=== PATIENT | female | born 1965 | race Caucasian/White ===

== ENCOUNTER 2017-08-30 11:38 | Inpatient (IN) | payer OTHER, SELFPAY ==
[2017-08-30] VITALS (10 sets, daily range): BP systolic 99–140; BP diastolic 56–83; PULSE 77–113; RESP 15–20; TEMP 36.8–36.9; O2SAT 96–99; BMI 33.8; BMI 34.4; BMI 34.5
--- NOTE | 2017-08-30 12:26 | RAD_ITS ---
STUDY: X-RAY CHEST REASON FOR EXAM: Female, 52 years old. 2 episodes of dizziness and lightheadedness. TECHNIQUE: PA and lateral views of the chest. COMPARISON: None. FINDINGS: EKG electrodes are seen. The lungs are clear and expanded. There is no demonstrated pleural abnormality. Normal size heart. Normal mediastinum and ardha. Normal visualized pulmonary arteries. Normal visualized aortic arch and descending thoracic aorta. There are degenerative changes of the visualized thoracic spine. Normal visualized ribs, clavicles, and shoulders. There is no demonstrated abnormality of the visualized soft tissue structures of the upper abdomen. RAD/Chest PA and Lateral IMPRESSION: No acute abnormality is seen. Electronically Signed: Jeronimo Mcleod MD at 12:54 EDT Tel [phone], Service support ,
--- NOTE | 2017-08-30 12:26 | EKG12_ITS ---
Test Reason : Blood Pressure : / mmHG Vent. Rate : 101 BPM Atrial Rate : 101 BPM P-R Int : 144 ms QRS Dur : 084 ms QT Int : 368 ms P-R-T Axes : 055 018 044 degrees QTc Int : 477 ms Sinus tachycardia Otherwise normal ECG Confirmed by BLANKA MONTELONGO, ZIYAD ([id number]), city editor JAIRO HUNTER ([id number] on 09/01/2017 10:52:08 AM Referred By: DEUCE Confirmed By:ZIYAD MOSCOSO MD
[2017-08-30 12:39] LABS: Absolute Lymphocyte Count 1.83 X10^3/ul (0.83-4.51); Absolute Neutrophil Count 15.2 X10^3/uL (2.0-7.7); Basophil# 0.03 X10^3/uL; Basophil% 0.2 % (0-1); Eosinophil# 0.06 X10^3/uL; Eosinophils% 0.3 % (0-5); Hematocrit 38.9 % (37-47); Hemoglobin 12.7 g/dl (12.0-15.0); Lymphocyte # 1.83 X10^3/ul (4.0); Lymphocyte % 10.3 % (19-41); Mean Corp Hgb Conc 32.6 g/gl (32-36); Mean Corpuscular Hgb 27.2 pg (27.0-32.0); Mean Corpuscular Volume 83.3 fL (81-99); Mean Platelet Vol. 9.5 fl (6.2-12.0); Monocyte# 0.69 X10^3/uL; Monocyte% 3.9 % (0-10); Neutrophil # 15.17 X10^3/uL (2.7-7.7); Neutrophil % 85.1 % (47-70); Platelet Count 340 K/mm3 (150-450); RBC Distribution Width CV 13.5 % (11.6-14.6); RBC Distribution Width SD 40.5 fl (35.1-43.9); Red Blood Count 4.67 M/mm3 (4.2-5.4); White Blood Count 17.8 K/mm3 (4.4-11.0)
[2017-08-30 12:45] LABS: POSITIVE COUNT NO; POSITIVE DIFFERENTIAL NO; POSITIVE MORPHOLOGY NO
[2017-08-30 12:51] LABS: Anion Gap 9 (5-15); BUN 14 mg/dL (7-18); BUN/Creat Ratio 19.9 RATIO (10-20); Calcium,Total 8.6 mg/dL (8.5-10.1); Chloride 100 mmol/L (98-107); EST Glomerular Filtration Rate 94 mL/min (>60); Est Glom Filt Rate - Afr Amer 113 mL/min (>60); Estimated Creatinine Clearance 79.54 ml/min; Glucose 231 mg/dL (74-106); Potassium 3.9 mmol/L (3.5-5.1); Sodium Level 134 mmol/L (136-145)
--- NOTE | 2017-08-30 12:51 | PCA ---
old ekg gotten
[2017-08-30 13:09] LABS: Bacteria 0 SEEN /hpf (None Seen); Mucous, Urine 0 SEEN /hpf (<or=2+); Red Blood Cells-Urine 0 SEEN /hpf (0-5)
[2017-08-30 13:12] LABS: Color, Urine Yellow (Yellow); Glucose, Dipstick 1000 mg/dl (Normal); Ketone-Dipstick 15 mg/dl (Negative); Leukocyte Esterase-Dipstick 500 /ul (Negative); Nitrite-Dipstick Negative (Negative); Occult Blood-Urine Negative /ul (Negative); Protein-Dipstick Negative (Negative); Urine Bilirubin Dipstick Negative (Negative); Urine Clarity Clear (Clear); Urine Urobilinogen Normal (Normal)
[2017-08-30 13:21] LABS: Squamous Epithelial Cells - UA 0-5 SEEN /hpf (5-10); White Blood Cells 0-5 SEEN /hpf (0-5)
[2017-08-30] MEDS: 0.9% Normal Saline 1,000 ML 999 ML IV ×2 (13:55→20:47)
[2017-08-30 14:39] LABS: Lactic Acid 2.9 mmol/L (0.4-2.0)
--- NOTE | 2017-08-30 14:51 | ED.DCSUM_ITS ---
- ER Visit Summary Date of Service: 08/30/17 Chief Complaint: I felt weird. History of Present Illness: The patient is a 52 F who presents with lightheadedness palpitations and near syncope. She states that she generally did not feel well and she began to feel dizzy as if she may lose consciousness. She states her heart was pounding. This lasted a few minutes and then resolved. She then had a second episode which did not last quite as long as the first. She has no other focal symptoms. She denies fevers chest pain shortness of breath nausea vomiting diarrhea. No history of dysrhythmia. No history of prior similar symptoms. Physical Examination: Afebrile heart rate 103 vitals otherwise normal Moist mucous membranes Heart regular rhythm tachycardia Lungs are clear Abdomen soft Alert Test Results: EKG shows sinus rhythm at a rate of 101. Chest x-ray shows no acute abnormalities. Laboratory studies notable for white blood cell count 17.8. Urinalysis shows 500 leukocyte esterase but no nitrites 0-5 WBCs 0 bacteria. Lactic acid 2.9. Troponin negative. Blood and urine cultures sent. Emergency Department Course and Treatment: Patient was treated with IV fluids. Although she reports no urinary symptoms she had frequent urination and needed to urinate multiple times while here. Urinalysis shows leukocyte esterase but no WBCs or bacteria. This was sent for culture. Additionally the patient has a significant leukocytosis and lactic acidosis. This is likely related to UTI. She was treated with IV Rocephin and will be admitted. Treatment Plan: [] Disposition: Admit Impression: Leukocytosis Lactic acidosis Possible UTI This note was generated with [employer] dictation software. It may contain incorrect words, spelling, and punctuation that were not noted in review of the chart prior to signing ED Disposition - Plan for ED Patient: Chief Complaint: Syncope Referrals: Cristy Simpson NP-C [Primary Care Provider] -
--- NOTE | 2017-08-30 14:57 | PCM.HP.STD ---
Problem List (1) UTI (urinary tract infection) Status: Acute Qualifiers: Urinary tract infection type: site unspecified Hematuria presence: without hematuria Qualified Code(s): N39.0 - Urinary tract infection, site not specified (2) Near syncope Status: Acute (3) Diabetes mellitus, type II Status: Chronic Qualifiers: Diabetes mellitus superintendent container terminal insulin use: without fci use Diabetes mellitus complication status: with unspecified complications Qualified Code(s): E11.8 - Type 2 diabetes mellitus with unspecified complications (4) Obesity (BMI 30.0-34.9) Status: Chronic (5) Iron deficiency anemia Status: Chronic Qualifiers: Iron deficiency anemia type: unspecified iron deficiency Qualified Code(s): D50.9 - Iron deficiency anemia, unspecified (6) Uterine fibroid Status: Chronic Qualifiers: Uterine leiomyoma location: unspecified location Qualified Code(s): D25.9 - Leiomyoma of uterus, unspecified History of Present Illness Date of Admission: 08/30/17 Chief Complaint: Increased urinary frequency, recent UTI tx x 2, near syncope The patient is a 52 y/o F w/ PMHx: Obesity, Diabetes mellitus type II, Fe Deficiency Anemia who presents to the [facility] ED on 08/30/17 with history of recent UTI treatment x 2, different abx therapy each time, denies urine culture being obtained with either remarkable noted UA over the last month with low back discomfort and dysuria each time with onset again over the last 2 days of lower back discomfort, fatigue, nausea w/ anorexia, urinary frequency, urgency in addition to onset on day of ED presentation w/ flushed, hot sensation with heart pounding w/ near syncopal sensation while seated and at rest resolving after ~ 2 minutes but recurring although again quickly resolving. While in the ED patient was noted to urinate several times. Work-up in the ED included T 98.2, HR 96, BP 123/70, RR 18, 99% on RA, CBC with WBC 17.8, hemoglobin 12.7, platelet 340 with left shift, BMP with sodium 134, glucose 231, lactic acid 2.9, troponin less than 0.015, EKG w/ sinus rhythm, urinalysis not severe appearing however given remarkable symptoms, leukocytosis and recent antibiotic therapy ?2 for urinary tract infection outpatient suspected possible UTI as etiology and in the emergency room patient was administered IV Rocephin, normal saline. Past Medical History Past Medical History (Chronic Problems): Chronic Problems Diabetes mellitus, type II (Chronic) Obesity (BMI 30.0-34.9) (Chronic) Iron deficiency anemia (Chronic) Uterine fibroid (Chronic) Allergies No Known Allergies Allergy (Verified 08/30/17 11:39) Home Medications: Ambulatory Orders Medication Instructions Recorded Biotin 5 mg PO DAILY 08/30/17 Cinnamon Bark [Cinnamon] 500 mg PO DAILY 08/30/17 Ferrous Sulfate 325 mg PO DAILY 08/30/17 Glimepiride [Amaryl] 2 mg PO DAILY 08/30/17 Lisinopril [Zestril] 2.5 mg PO DAILY 08/30/17 Metformin HCl 1,000 mg PO BID 08/30/17 Surgical History: - - x 3, T+A. 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 Paternal History Items: Unknown Review of Systems Constitutional: Reports: Anorexia, Malaise, Weakness, Fatigue. Denies: Chills, Fever, Weight Change HEENT: Denies: Head Aches, Sinus Congestion, Sinus Drainage Cardiovascular: Denies: Chest Pain, Palpitations Respiratory: Denies: Cough, Shortness of breath at rest, Sputum production Gastrointestinal: Reports: Nausea. Denies: Abdominal Pain, Vomiting Genitourinary: Reports: Dysuria, Frequency, Retention, Urgency Musculoskeletal: Reports: Back Pain. Denies: Joint Pain, Joint Tenderness Skin: Denies: Rash, Wounds Neurological: Denies: Numbness, Tingling, Focal weakness Psychiatric: Denies: Anxiety, Depression, Homicidal Ideations, Suicidal Ideations Hematologic/ Lymphatic: Reports: Anemia. Denies: Easy Bruising, Easy Bleeding VTE Information - Inpt Only VTE Present on Admission: No VTE Mechan Device Prophylaxis: SCD's VTE Pharm Prophylaxis ordered?: Yes Patient Problems: Active and Suspected Problems UTI (urinary tract infection) (Acute) Near syncope (Acute) Subjective: Seated upright in the ED bed, notes feeling improved since initial presentation. Objective: Physical Examination: General: awake, alert, oriented x 3 and cooperative, seated upright in the ED bed in no apparent distress. Skin: normal color, turgor, no icterus, cyanosis. HEENT: AT/NC, EOMI, PERRLA, dry MM, no carotid bruits or JVD noted. Lungs: CTA bilaterally, moderate effort, mild decrease BL bases, no rales, ronchi or wheezing. Heart: Mildly tachycardic with regular rhythm; no gallop, rub audible. Abdomen: soft, mild suprapubic tenderness to palpation otherwise no market tenderness, ND, normal BS, no HSM. Extremities: no cyanosis, clubbing, or edema. Neurological: patient awake, alert, oriented x 3; cognitive function intact; pupils equally reactive to light and accomodation; cranial nerves II-XII grossly normal, moving all 4 extremities, no focal deficits, strength mildly moderately globally decreased secondary to acute presentation. Psychiatric: affect appears normal, no acute evidence of depressive or anxiety feelings. - Physical Exam Vital Signs Temp Pulse Resp BP Pulse Ox 98.2 F 90 15 140/79 H 97 08/30/17 11:40 08/30/17 14:12 08/30/17 14:12 08/30/17 14:12 08/30/17 14:12 Oxygen Delivery Method Room Air Weight: 191 lb Body Mass Index (BMI) 33.8 Laboratory Tests Past 24 Hrs 08/30/17 08/30/17 08/30/17 12:09 12:09 13:03 WBC 17.8 H RBC 4.67 Hgb 12.7 Hct 38.9 MCV 83.3 MCH 27.2 MCHC 32.6 RDW 13.5 RDW Differential 40.5 Plt Count 340 MPV 9.5 Immature Gran % (Auto) 0.200 Neut % (Auto) 85.1 H Lymph % (Auto) 10.3 L [place] % (Auto) 3.9 Eos % (Auto) 0.3 Baso % (Auto) 0.2 Absolute Neuts (auto) 15.2 H Absolute Lymphs (auto) 1.83 Total Counted Not Reportable Sodium 134 L Potassium 3.9 Chloride 100 Carbon Dioxide 25.0 Anion Gap 9 BUN 14 Creatinine 0.70 Estim Creat Clear Calc 79.54 Est GFR (MDRD) Af Amer 113 Est GFR (MDRD) Non-Af 94 BUN/Creatinine Ratio 19.9 Glucose 231 H Lactic Acid Calcium 8.6 Troponin I < 0.015 Urine Color Yellow Urine Clarity Clear Urine pH 6.0 Ur Specific [place] 1.010 Urine Protein Negative Urine Glucose (UA) 1000 H Urine Ketones 15 H Urine Occult Blood Negative Urine Nitrite Negative Urine Bilirubin Negative Urine Urobilinogen Normal Ur Leukocyte Esterase 500 H Urine RBC 0 SEEN Urine WBC 0-5 SEEN Ur Squamous Epith Cells 0-5 SEEN Urine Bacteria 0 SEEN Urine Mucus 0 SEEN 08/30/17 14:00 WBC RBC Hgb Hct MCV MCH MCHC RDW RDW Differential Plt Count MPV Immature Gran % (Auto) Neut % (Auto) Lymph % (Auto) [place] % (Auto) Eos % (Auto) Baso % (Auto) Absolute Neuts (auto) Absolute Lymphs (auto) Total Counted Sodium Potassium Chloride Carbon Dioxide Anion Gap BUN Creatinine Estim Creat Clear Calc Est GFR (MDRD) Af Amer Est GFR (MDRD) Non-Af BUN/Creatinine Ratio Glucose Lactic Acid 2.9 H Calcium Troponin I Urine Color Urine Clarity Urine pH Ur Specific [place] Urine Protein Urine Glucose (UA) Urine Ketones Urine Occult Blood Urine Nitrite Urine Bilirubin Urine Urobilinogen Ur Leukocyte Esterase Urine RBC Urine WBC Ur Squamous Epith Cells Urine Bacteria Urine Mucus Assessment/Plan Active and Suspected Problems UTI (urinary tract infection) (Acute) Near syncope (Acute) The patient is a 52 y/o F w/ PMHx: Obesity, Diabetes mellitus type II, Fe Deficiency Anemia who presents to the [facility] ED on 08/30/17 with history of recent UTI treatment x 2, different abx therapy each time, denies urine culture being obtained with either remarkable noted UA over the last month with low back discomfort and dysuria each time with onset again over the last 2 days of lower back discomfort, fatigue, nausea w/ anorexia, urinary frequency, urgency in addition to onset on day of ED presentation w/ flushed, hot sensation with heart pounding w/ near syncopal sensation while seated and at rest resolving after ~ 2 minutes but recurring although again quickly resolving. (1) Near Syncopal Event: Unclear etiololgy, felt likely secondary to #2; however, UA not severe appearing. EKG in ED w/ sinus rhythm without evidence of acute ischemia, CXR w/ no acute cardiopulmonary findings, initial trop normal. Will admit to PCU, place on a monitored bed to assure no acute myocardial infarction with serial cardiac enzymes and EKGs. Will maintain on fall precautions, orthostatics negative in the ED, continue IVFs, continue treatment of #2, obtain ECHO. (2) Acute Urinary Tract Infection, Failed Recent Outpatient treatment x 2: UA upon ED evaluation not severely remarkable but sxs and recent abx therapy x 2, pending UCx, admission CBC w/ WBC 17.8 with L shift, continue IVFs, monitor I/Os, continue IV Rocephin w/ transition as able pending sensitivities and speciation. Bld cx x 2 obtained in the ED. (3) Diabetes mellitus type II: Hold oral home regimen, ADA diet, accu checks w/ ISS. (4) Iron deficiency anemia: Admission hemoglobin 12.7, patient notes over the last several months was transitioned to only single daily iron and since then has felt mildly increased fatigue and weakness. Iron panel, ferritin pending. (5) Obesity: Weight loss and lifestyle changes encouraged, nutrition consulted. (6) DVT Prophylaxis: SCDs, lovenox. Code Visit Inpatient E&M: 65800 Init Hosp L3
[2017-08-30] MEDS: Ceftriaxone 1 GM/50 ML BAG IV (15:19)
--- NOTE | 2017-08-30 17:55 | ECHOD_ITS ---
Reason For Study: Arrhythmia Procedure This was a 2D Doppler, Color Flow transthoracic echocardiogram. The exam was of adequate technical quality. Exam performed portable in patient room. Left Ventricle Normal LV size. Left ventricular systolic function is normal. The estimated ejection fraction is 65 %. No evidence for diastolic dysfunction. No regional wall motion abnormalities noted. Right Ventricle Normal RV size. Normal systolic function. Atria Normal left atrium. Normal right atrium. No doppler evidence for ASD. Mitral Valve There is no mitral annular calcification. Normal mitral valve. Trivial mitral valve insufficiency. Tricuspid Valve Normal tricuspid valve. Mild tricuspid valve insufficiency. Right ventricular systolic pressure estimated to be 30 mmHg. Aortic Valve Trisinus/trileaflet aortic valve. Normal aortic valve. Pulmonic Valve The pulmonic valve is not well visualized. Great Vessels Normal sized aortic root. Pericardium/Pleural No pericardial effusion. MMode/2D Measurements & Calculations LVIDd: 3.8 cm IVSd: 1.3 cm Ao root diam: 3.3 cm LVIDs: 1.7 cm LVPWd: 0.90 cm LA dimension: 3.3 cm FS: 54.1 % LAV(MOD-bp): 32.7 ml LA A4 area: 17.3 cm2 LAV(MOD-bp) Indexed: 17.1 ml/m2 LAV(MOD-sp2): 21.8 ml LAV(MOD-sp4): 45.3 ml Time Measurements MV dec time: 0.20 sec Doppler Measurements & Calculations MV E max reza: 118.3 cm/sec Lat Peak E' Reza: 15.5 cm/sec Med Peak E' Reza: 11.7 cm/sec MV A max reza: 73.6 cm/sec E/E' lat: 7.6 E/E' med: 10.1 MV E/A: 1.6 MV V2 max: 126.2 cm/sec MV P1/2t max reza: 126.2 cm/sec Ao V2 max: 157.0 cm/sec MV max P.4 mmHg MV P1/2t: 66.1 msec Ao max P.9 mmHg MV V2 mean: 55.6 cm/sec MV dec slope: 559.0 cm/sec2 Ao V2 mean: 105.6 cm/sec MV mean P.6 mmHg MVA(P1/2t): 3.3 cm2 Ao mean P.9 mmHg MV V2 VTI: 30.5 cm Ao V2 VTI: 31.9 cm LV V1 max: 120.9 cm/sec PA V2 max: 97.3 cm/sec TR max reza: 257.6 cm/sec LV V1 max P.8 mmHg TR max P.5 mmHg LV V1 mean P.9 mmHg LV V1 mean: 79.7 cm/sec LV V1 VTI: 27.4 cm Interpretation Summary Left ventricular systolic function is normal. The estimated ejection fraction is 65 %. Trivial mitral valve insufficiency. Mild tricuspid valve insufficiency. Right ventricular systolic pressure estimated to be 30 mmHg. No evidence for diastolic dysfunction. Ordering Physician: Ronel La Performed By: Everett Waller RCS
[2017-08-30 18:00] LABS: Bedside Glucose 147 mg/dL (70-110)
[2017-08-30 18:06] LABS: Reflex Lactate? Y
[2017-08-30] MEDS: 0.9% Normal Saline 1,000 ML 125 ML IV (18:08)
[2017-08-30 18:22] LABS: Ferritin 8 ng/mL (8-252); Iron 39 ug/dL (50-170); Iron Binding Capacity,Total 370 ug/dL (250-450); PERCENT IRON SATURATION 10.5 % (15.0-55.0); Thyroid Stim Hormone (TSH) 0.94 uIU/mL (0.358-3.74)
[2017-08-30 18:25] LABS: Magnesium 1.8 mg/dL (1.6-2.6)
[2017-08-30 19:19] LABS: Lactic Acid 2.1 mmol/L (0.4-2.0)
[2017-08-30] MEDS: Famotidine 20 MG Tablet PO (21:37)
--- NOTE | 2017-08-30 22:22 | NURSING ---
Pt. put her wedding ring in purse at this time. She felt her fingers were swelling. No swelling noted by this nurse. IV site has no edema or signs of infiltration. Will monitor.
[2017-08-30 23:06] LABS: Bedside Glucose 171 mg/dL (70-110)
[2017-08-31] VITALS (12 sets, daily range): BP systolic 109–141; BP diastolic 54–90; PULSE 63–89; RESP 16–20; TEMP 36.6–37; O2SAT 96–998
[2017-08-31] MEDS: 0.9% Normal Saline 1,000 ML 125 ML IV ×2 (05:04→13:50)
[2017-08-31 05:32] LABS: Absolute Lymphocyte Count 3.91 X10^3/ul (0.83-4.51); Absolute Neutrophil Count 5.9 X10^3/uL (2.0-7.7); Basophil# 0.04 X10^3/uL; Basophil% 0.4 % (0-1); Eosinophil# 0.22 X10^3/uL; Hematocrit 35.4 % (37-47); Hemoglobin 11.3 g/dl (12.0-15.0); Lymphocyte # 3.91 X10^3/ul (4.0); Lymphocyte % 36.1 % (19-41); Mean Corp Hgb Conc 31.9 g/gl (32-36); Mean Corpuscular Hgb 27.2 pg (27.0-32.0); Mean Corpuscular Volume 85.1 fL (81-99); Mean Platelet Vol. 9.4 fl (6.2-12.0); Monocyte# 0.76 X10^3/uL; Neutrophil # 5.88 X10^3/uL (2.7-7.7); Neutrophil % 54.2 % (47-70); Platelet Count 307 K/mm3 (150-450); RBC Distribution Width CV 13.5 % (11.6-14.6); RBC Distribution Width SD 41.5 fl (35.1-43.9); Red Blood Count 4.16 M/mm3 (4.2-5.4); White Blood Count 10.8 K/mm3 (4.4-11.0)
[2017-08-31 05:40] LABS: POSITIVE COUNT NO; POSITIVE DIFFERENTIAL NO; POSITIVE MORPHOLOGY NO
[2017-08-31 05:51] LABS: AST(SGOT) 8 U/L (15-37); Alanine Aminotransfer ALT/SGPT 15 U/L (13-56); Albumin, Serum 2.9 g/dL (3.2-5.0); Alkaline Phosphatase 92 U/L (45-117); Anion Gap 7 (5-15); BUN 10 mg/dL (7-18); BUN/Creat Ratio 18.6 RATIO (10-20); Calcium,Total 7.7 mg/dL (8.5-10.1); Chloride 108 mmol/L (98-107); Creatinine, Serum 0.54 mg/dL (0.55-1.02); EST Glomerular Filtration Rate 127 mL/min (>60); Est Glom Filt Rate - Afr Amer 154 mL/min (>60); Glucose 151 mg/dL (74-106); Potassium 3.8 mmol/L (3.5-5.1); Protein, Total 5.9 g/dL (6.4-8.2); Sodium Level 141 mmol/L (136-145)
--- NOTE | 2017-08-31 05:55 | EKG12_ITS ---
Test Reason : DYSRHYTHMIA Blood Pressure : / mmHG Vent. Rate : 062 BPM Atrial Rate : 062 BPM P-R Int : 148 ms QRS Dur : 082 ms QT Int : 426 ms P-R-T Axes : 034 035 026 degrees QTc Int : 432 ms Normal sinus rhythm Normal ECG Confirmed by BLANKA MONTELONGO, ZIYAD ([id number]), web editor JAIRO HUNTER ([id number] on 09/06/2017 2:55:05 PM Referred By: VASQUEZ Confirmed By:ZIYAD MOSCOSO MD
[2017-08-31 07:05] LABS: Bedside Glucose 157 mg/dL (70-110)
[2017-08-31] MEDS: Ferrous Sulfate 325 MG Tablet PO (08:01)
[2017-08-31] MEDS: Famotidine 20 MG Tablet PO ×2 (08:57→21:18)
[2017-08-31] MEDS: Enoxaparin 40 MG/0.4 ML Syringe SC (08:57)
[2017-08-31] MEDS: Lisinopril 2.5 MG Tablet PO (08:57)
--- NOTE | 2017-08-31 11:54 | PN_ITS ---
Patient Problems: Active and Suspected Problems UTI (urinary tract infection) (Acute) Near syncope (Acute) Subjective: Patient seen and examined. Continues to complain of urinary frequency. Denies dysuria. Denies flank pain, abdominal pain. Denies fever, chills. Denies other complaints at this time. - Physical Exam General: Alert, Oriented x3, Cooperative HEENT: Atraumatic, PERRLA, EOMI, Normocephalic Neck: Supple, No JVD, Negative Carotid Bruits Lungs: Clear to auscultation, Normal air movement Cardiovascular: Regular rate, Regular Rhythm, Normal S1, Normal S2, No murmurs Abdomen: Bowel Sounds Present, Soft, Non Tender, Non-Distended Extremities: No clubbing, No cyanosis, No edema, Capillary Refill Less than 3 Seconds Skin: No rashes, No breakdown Musculoskeletal: No Tenderness to Palpation of Joints or Extremities Neurological: Cranial nerves II-XII grossly intact, Neuro grossly intact Psych/Mental Status: Normal Affect, Appropriate Vital Signs Temp Pulse Resp BP Pulse Ox 98.6 F 77 18 130/78 H 97 08/31/17 11:25 08/31/17 11:25 08/31/17 11:25 08/31/17 11:25 08/31/17 11:25 Oxygen Delivery Method Room Air Weight: 88.3 kg Body Mass Index (BMI) 34.4 Intake and Output for Last 24 Hours 08/29/17 08/30/17 08/31/17 23:59 23:59 23:59 Intake Total 1696 / 1696 1196 / 1196 Output Total 175 / 175 300 / 300 Balance 1521 / 1521 896 / 896 Laboratory Tests Past 24 Hrs 08/30/17 08/30/17 08/30/17 18:29 18:29 20:29 WBC RBC Hgb Hct MCV MCH MCHC RDW RDW Differential Plt Count MPV Immature Gran % (Auto) Neut % (Auto) Lymph % (Auto) [place] % (Auto) Eos % (Auto) Baso % (Auto) Absolute Neuts (auto) Absolute Lymphs (auto) Total Counted Sodium Potassium Chloride Carbon Dioxide Anion Gap BUN Creatinine Estim Creat Clear Calc Est GFR (MDRD) Af Amer Est GFR (MDRD) Non-Af BUN/Creatinine Ratio Glucose Lactic Acid 2.1 H Calcium Total Bilirubin AST ALT Alkaline Phosphatase Troponin I < 0.015 < 0.015 Total Protein Albumin Globulin Albumin/Globulin Ratio 08/31/17 08/31/17 08/31/17 05:13 05:13 05:13 WBC 10.8 RBC 4.16 L Hgb 11.3 L Hct 35.4 L MCV 85.1 MCH 27.2 MCHC 31.9 L RDW 13.5 RDW Differential 41.5 Plt Count 307 MPV 9.4 Immature Gran % (Auto) 0.300 Neut % (Auto) 54.2 Lymph % (Auto) 36.1 [place] % (Auto) 7.0 Eos % (Auto) 2.0 Baso % (Auto) 0.4 Absolute Neuts (auto) 5.9 Absolute Lymphs (auto) 3.91 Total Counted Not Reportable Sodium 141 Potassium 3.8 Chloride 108 H Carbon Dioxide 26.0 Anion Gap 7 BUN 10 Creatinine 0.54 L Estim Creat Clear Calc 103.10 Est GFR (MDRD) Af Amer 154 Est GFR (MDRD) Non-Af 127 BUN/Creatinine Ratio 18.6 Glucose 151 H Lactic Acid 1.0 Calcium 7.7 L Total Bilirubin 0.50 AST 8 L ALT 15 Alkaline Phosphatase 92 Troponin I Total Protein 5.9 L Albumin 2.9 L Globulin 3.0 Albumin/Globulin Ratio 1.0 POC Glucose 08/31/17 08/30/17 08/30/17 06:59 21:41 17:56 POC Glucose 157 H 171 H 147 H Medical Necessity - Tobacco Use Smoking Status: Never smoker Assessment/Plan Active and Suspected Problems UTI (urinary tract infection) (Acute) Near syncope (Acute) Patient is a 52-year-old female admitted 08/30/2017 due to increased urinary frequency, recent UTI with failed outpatient treatment ?2, near syncope. She has a past medical history of type 2 diabetes mellitus, obesity, iron deficiency anemia, hypertension. 1. Acute urinary tract infection, failed recent outpatient treatment ?2- complains of continued urinary frequency. Continue IV Rocephin. Urine and blood cultures pending. Bladder scan ordered. Post void residuals have not been significant. 2. Near syncope-troponin negative. Echocardiogram pending. Suspect secondary to #1. Patient denies further dizziness, lightheadedness. Orthostatic vitals negative. 3. Type 2 diabetes mellitus-home metformin regimen on hold. Continue Accu- Cheks before meals at bedtime with sliding scale insulin. Check hemoglobin A1c given recurrent UTI. 4. Iron deficiency anemia-continue home iron supplementation. 5. Hypertension-stable, continue home lisinopril regimen. 6. Obesity-diet and lifestyle modifications encouraged. DVT prophylaxis-Lovenox subcu. This patient was seen by NOÉ Fry under the supervision of Dr. Caraballo.
[2017-08-31 11:55] LABS: Bedside Glucose 199 mg/dL (70-110)
[2017-08-31 12:28] LABS: Hemoglobin A1c 8.7 % (4.2-6.3)
--- NOTE | 2017-08-31 13:24 | CASEMGMT ---
RAMAN HERNANDEZ Face to Face with patient for initial transition planning/care coordination assessment. RAMAN HERNANDEZ introduced self and role at [facility]. Patient lying in bed, alert and oriented, at bedside. Patient willing to participate in assessment and is able to answer all questions appropriately. Care providers, pharmacy, and demographics verified. See link attached. Patient wishes to discharge home, denies needs at this time. Patient states she has no further needs or concerns at this time. RAMAN HERNANDEZ sent referral to [facility]. CM to follow for discharge planning needs that may arise. Disposition Plan: Patient to discharge home with family support and follow-up plans in place.
[2017-08-31] MEDS: Ceftriaxone 1 GM/50 ML BAG IV (13:50)
[2017-08-31 16:36] LABS: Bedside Glucose 192 mg/dL (70-110)
[2017-08-31] MEDS: Acetaminophen 325 MG Tablet 650 MG PO (18:20)
[2017-08-31 21:40] LABS: Bedside Glucose 245 mg/dL (70-110)
[2017-09-01 03:20] VITALS: PULSE 65
[2017-09-01 05:00] VITALS: BP 113/79; PULSE 77; RESP 16; TEMP 36.7; O2SAT 96
[2017-09-01 07:05] LABS: Bedside Glucose 163 mg/dL (70-110)
[2017-09-01 07:21] VITALS: PULSE 60
--- NOTE | 2017-09-01 08:41 | PCM.DC ---
- Discharge Diagnoses Current Active Problems: Current Active and Chronic Problems Diabetes mellitus, type II (Chronic) Obesity (BMI 30.0-34.9) (Chronic) Iron deficiency anemia (Chronic) Uterine fibroid (Chronic) UTI (urinary tract infection) (Acute) Near syncope (Acute) You will use the following diet at home:: Calorie/Carbohydrate Controlled (specify 1200, 1400, etc) Discharge Activity: Return to Normal Activity Call your doctor if you observe: Fever of 101 or Higher, Shortness of breath, Dizziness, Fainting spells, Chest pain, Increased palpitations (irregular heartbeat) Additional Instructions: You voiced interest in switching primary care physicians. We spoke about Dr. Suarez. Her office is located at [address] [place] [address]. Phone number is [phone]. Allergies/Adverse Reactions: Allergies No Known Allergies Allergy (Verified 08/30/17 11:39) Medications to take at Discharge Biotin 5 mg PO MOWEFR 08/30/17 Cinnamon Bark [Cinnamon] 500 mg PO DAILY 08/30/17 Ferrous Sulfate 325 mg PO DAILY 08/30/17 Glimepiride [Amaryl] 2 mg PO DAILY 08/30/17 Lisinopril [Zestril] 2.5 mg PO DAILY 08/30/17 Metformin HCl 1,000 mg PO BID 08/30/17 Cephalexin [Keflex] 500 mg PO Q12 #12 cap 09/01/17 The following prescriptions were given: Cephalexin [Keflex] 500 mg PO Q12 #12 cap Primary Care Physician: Cristy Simpson NP-C [Primary Care Provider] - Please follow up with your Primary Care Physician in: 1 Week Please Follow Up With: Dr. Rae Kellogg - Female Urology When: Call to schedule in October, Proposed Discharge Date: 09/01/17
--- NOTE | 2017-09-01 08:45 | DCINST_ITS ---
- Discharge Diagnoses Current Active Problems: Current Active and Chronic Problems Diabetes mellitus, type II (Chronic) Obesity (BMI 30.0-34.9) (Chronic) Iron deficiency anemia (Chronic) Uterine fibroid (Chronic) UTI (urinary tract infection) (Acute) Near syncope (Acute) You will use the following diet at home:: Calorie/Carbohydrate Controlled ( specify 1200, 1400, etc) Discharge Activity: Return to Normal Activity Call your doctor if you observe: Fever of 101 or Higher, Shortness of breath, Dizziness, Fainting spells, Chest pain, Increased palpitations (irregular heartbeat) Additional Instructions: You voiced interest in switching primary care physicians. We spoke about Dr. Suarez. Her office is located at [address] [place] [address]. Phone number is [phone]. Allergies/Adverse Reactions: Allergies No Known Allergies Allergy (Verified 08/30/17 11:39) Medications to take at Discharge Biotin 5 mg PO MOWEFR 08/30/17 Cinnamon Bark [Cinnamon] 500 mg PO DAILY 08/30/17 Ferrous Sulfate 325 mg PO DAILY 08/30/17 Glimepiride [Amaryl] 2 mg PO DAILY 08/30/17 Lisinopril [Zestril] 2.5 mg PO DAILY 08/30/17 Metformin HCl 1,000 mg PO BID 08/30/17 Cephalexin [Keflex] 500 mg PO Q12 #12 cap 09/01/17 The following prescriptions were given: Cephalexin [Keflex] 500 mg PO Q12 #12 cap Primary Care Physician: Cristy Simpson NP-C [Primary Care Provider] - Please follow up with your Primary Care Physician in: 1 Week Please Follow Up With: Dr. Rae Kellogg - Female Urology When: Call to schedule in October, Proposed Discharge Date: 09/01/17
--- NOTE | 2017-09-01 08:48 | PCM.DC.SUM ---
Discharge Date and Diagnosis Date of Admission: 08/30/17 Date of Discharge: 09/01/17 - Primary Discharge Diagnosis Active and Suspected Problems 1. Acute severe sepsis secondary to acute gram-negative cystitis, failed outpatient treatment 2. Near syncope-secondary to #1. 3. Type 2 diabetes mellitus 4. Iron deficiency anemia 5. Hypertension 6. Obesity - Secondary Discharge Diagnosis Chronic Problems Diabetes mellitus, type II (Chronic) Obesity (BMI 30.0-34.9) (Chronic) Iron deficiency anemia (Chronic) Uterine fibroid (Chronic) Hospital Course and Treatment Imaging Results: Diagnostic Data Chest X-Ray 08/30/17 12:26 IMPRESSION: No acute abnormality is seen. Electronically Signed: Jeronimo Mcleod MD at 12:54 EDT Tel [phone], Service support , Operations: None Procedures: 2-D Echocardiogram Summary of Care Provided: Patient is a 52-year-old female admitted 08/30/2017 due to increased urinary frequency, recent UTI with failed outpatient treatment ?2, near syncope. She has a past medical history of type 2 diabetes mellitus, obesity, iron deficiency anemia, hypertension. 1. Acute severe sepsis secondary to acute gram-negative bacteria cystitis failed recent outpatient treatment ?2-patient received IV Rocephin during admission. Bladder scan ordered. Post void residuals have not been significant. Urine culture shows gram-negative pao. Blood cultures pending at discharge. Patient will be discharged on Keflex 500 mg twice daily for 6 more days of oral antibiotic therapy. Follow-up with primary care physician in 1 week. Patient was given information on female urologist if she continues to have issues with urinary frequency, incontinence. 2. Near syncope-troponin negative. Echocardiogram shows an ejection fraction of 65%, RVSP estimated to be 30 mmHg. Suspect secondary to #1. Patient denies further dizziness, lightheadedness. Orthostatic vitals negative. 3. Type 2 diabetes mellitus-continue home regimen. Hemoglobin A1c 8.7%. Continue outpatient monitoring and follow-up. 4. Iron deficiency anemia-continue home iron supplementation. 5. Hypertension-stable, continue home lisinopril regimen. 6. Obesity-diet and lifestyle modifications encouraged. General: Alert, Oriented x3, Cooperative HEENT: Atraumatic, PERRLA, EOMI, Normocephalic Neck: Supple, No JVD, Negative Carotid Bruits Lungs: Clear to auscultation, Normal air movement Cardiovascular: Regular rate, Regular Rhythm, Normal S1, Normal S2, No murmurs Abdomen: Bowel Sounds Present, Soft, Non Tender, Non-Distended Extremities: No clubbing, No cyanosis, No edema, Capillary Refill Less than 3 Seconds Skin: No rashes, No breakdown Musculoskeletal: No Tenderness to Palpation of Joints or Extremities Neurological: Cranial nerves II-XII grossly intact, Neuro grossly intact Psych/Mental Status: Normal Affect, Appropriate Patient seen exam prior to discharge. Physical assessment as noted above. Patient stable for discharge home with the recommendations as noted above. This patient was seen by NOÉ Fry under the supervision of Dr. Caraballo. Discharge Diet: Carb Control Diet Discharge Activity: Return to Normal Activity Call your doctor if you observe: Fever of 101 or Higher, Shortness of breath, Dizziness, Fainting spells, Chest pain, Increased palpitations (irregular heartbeat) Home Medications: Medications to take at Discharge Biotin 5 mg PO MOWEFR 08/30/17 Cinnamon Bark [Cinnamon] 500 mg PO DAILY 08/30/17 Ferrous Sulfate 325 mg PO DAILY 08/30/17 Glimepiride [Amaryl] 2 mg PO DAILY 08/30/17 Lisinopril [Zestril] 2.5 mg PO DAILY 08/30/17 Metformin HCl 1,000 mg PO BID 08/30/17 Cephalexin [Keflex] 500 mg PO Q12 #12 cap 09/01/17 Following Prescrptions Were Given to Patient: Cephalexin [Keflex] 500 mg PO Q12 #12 cap Primary Care Physician: Cristy Simpson NP-C [Primary Care Provider] - Please follow up with your Primary Care Physician in: 1 Week Please Follow Up With: Dr. Rae Kellogg - Female Urology When: Call to schedule in October, Disposition: Home Minutes spent on discharge:: 35 Patient Condition:: Stable Medical Necessity - Tobacco Use Smoking Status: Never smoker Meaningful Use Info Meaningful Use Diagnoses (Choose all that apply): None applicable
[2017-09-01 08:49] VITALS: BP 113/69; PULSE 62; RESP 16; TEMP 37.3; O2SAT 94
[2017-09-01 08:51] VITALS: O2SAT 95
[2017-09-01] MEDS: Lisinopril 2.5 MG Tablet PO (08:53)
[2017-09-01] MEDS: Ferrous Sulfate 325 MG Tablet PO (08:53)
--- NOTE | 2017-09-01 09:03 | NURSING ---
Pt taken off monitor and IV removed so pt able to take shower prior to DC per her request
== END 2017-09-01 10:00 | disposition home or self-care (01) | DRG 872 ==
LOC: ED 15:23 → PCU 15:34
PROVIDERS: Internal Medicine; Nurse Practitioner Family; Admitting Provider Family Medicine; Emergency Provider Emergency Medicine; Family Provider Nurse Practitioner Family; PCP Nurse Practitioner Family; Visit Provider Internal Medicine
DX: A41.50 Gram-negative sepsis, unspecified (principal); N30.00 Acute cystitis without hematuria; R65.20 Severe sepsis without septic shock; B96.89 Other specified bacterial agents as the cause of diseases classified elsewhere; R55 Syncope and collapse; D50.9 Iron deficiency anemia, unspecified; E11.9 Type 2 diabetes mellitus without complications; I10 Essential (primary) hypertension; E66.9 Obesity, unspecified; D25.9 Leiomyoma of uterus, unspecified; Z68.34 Body mass index [BMI] 34.0-34.9, adult; Z71.3 Dietary counseling and surveillance
CPT/HCPCS: 36415; 71046; 80048; 80053; 81001; 82728; 82962; 83036; 83540; 83550; 83605; 83735; 84443; 84484; 85025; 87040; 87077; 87086; 87088; 87186; 93005; 93306; 97802; 99285; J7030; Q9957; A4216

== ENCOUNTER 2017-11-07 11:00 | Outpatient (RCR) | payer OTHER, SELFPAY | END 2017-11-07 23:59 | LOC: DC 11:00 | PROVIDERS: Family Provider Nurse Practitioner Family; PCP Nurse Practitioner Family; Visit Provider Nurse Practitioner Family | DX: E11.69 Type 2 diabetes mellitus with other specified complication (principal) | CPT/HCPCS: 97802; G0108 ==

== ENCOUNTER → 2017-11-14 12:20 | Outpatient (CLI) | payer OTHER, SELFPAY ==
--- NOTE | 2017-11-14 12:22 | US_ITS ---
STUDY: RENAL ULTRASOUND - COMPLETE REASON FOR EXAM: Female, 52 years old. Pyelonephritis. TECHNIQUE: Ultrasound evaluation of the kidneys was performed with real-time and static molina-scale imaging. COMPARISON: None. FINDINGS: RIGHT KIDNEY: Normal location of the right kidney, which is normal in size. The right kidney measures 10.9 x 5.7 x 5.8 cm. There is a normal cortex of the right kidney. The renal cortex measures 1.4 cm. There is no right renal mass or cyst. There are no right renal calculi. There is no right hydronephrosis. DISTAL RIGHT URETER: There is non-visualization of the distal right ureter. There is no demonstrated right ureterovesical junction calculus. There is a visualized right ureteral jet. LEFT KIDNEY: Normal location of the left kidney, which is normal in size. The left kidney measures 10.7 x 5.4 x 5.5 cm. There is a normal cortex of the left kidney. The renal cortex measures 1.9 cm. There is no left renal mass or cyst. There are no left renal calculi. There is no left hydronephrosis. DISTAL LEFT URETER: There is non-visualization of the distal left ureter. There is no demonstrated left ureterovesical junction calculus. There is a visualized left ureteral jet. BLADDER: The distended urinary bladder has a volume of 70 ml. There is a normal wall thickness of the distended urinary bladder. There is no demonstrated mass within the urinary bladder. There are no demonstrated bladder calculi. US/Kidney and Bladder IMPRESSION: Normal ultrasound of the kidneys and urinary bladder. Electronically Signed: Shakir Tinajero MD at 15:40 EDT , Service support ,
[2017-11-14 17:45] LABS: Absolute Lymphocyte Count 3.87 X10^3/ul (0.83-4.51); Absolute Neutrophil Count 6.1 X10^3/uL (2.0-7.7); Basophil# 0.03 X10^3/uL; Basophil% 0.3 % (0-1); Eosinophils% 2.7 % (0-5); Hematocrit 35.9 % (37-47); Hemoglobin 11.7 g/dl (12.0-15.0); Lymphocyte # 3.87 X10^3/ul (4.0); Lymphocyte % 34.6 % (19-41); Mean Corp Hgb Conc 32.6 g/gl (32-36); Mean Corpuscular Hgb 26.7 pg (27.0-32.0); Mean Platelet Vol. 10.1 fl (6.2-12.0); Monocyte# 0.83 X10^3/uL; Monocyte% 7.4 % (0-10); Neutrophil # 6.14 X10^3/uL (2.7-7.7); Neutrophil % 54.8 % (47-70); Platelet Count 371 K/mm3 (150-450); RBC Distribution Width CV 13.5 % (11.6-14.6); RBC Distribution Width SD 39.3 fl (35.1-43.9); Red Blood Count 4.38 M/mm3 (4.2-5.4); White Blood Count 11.2 K/mm3 (4.4-11.0)
[2017-11-14 18:10] LABS: ALB/GLOB Ratio 0.9 RATIO (0.9-2.4); AST(SGOT) 13 U/L (15-37); Alanine Aminotransfer ALT/SGPT 23 U/L (13-56); Albumin, Serum 3.5 g/dL (3.2-5.0); Alkaline Phosphatase 122 U/L (45-117); Anion Gap 8 (5-15); BUN 8 mg/dL (7-18); BUN/Creat Ratio 12.2 RATIO (10-20); Calcium,Total 8.8 mg/dL (8.5-10.1); Chloride 101 mmol/L (98-107); Creatinine, Serum 0.66 mg/dL (0.55-1.02); EST Glomerular Filtration Rate 101 mL/min (>60); Est Glom Filt Rate - Afr Amer 122 mL/min (>60); Ferritin 7 ng/mL (8-252); Globulin 3.7 g/dL (2.2-4.2); Glucose 152 mg/dL (74-106); Potassium 3.8 mmol/L (3.5-5.1); Protein, Total 7.2 g/dL (6.4-8.2); Sodium Level 139 mmol/L (136-145); Thyroid Stim Hormone (TSH) 1.62 uIU/mL (0.358-3.74)
[2017-11-14 18:17] LABS: POSITIVE COUNT NO; POSITIVE DIFFERENTIAL NO; POSITIVE MORPHOLOGY NO
[2017-11-16 16:08] LABS: ANTINUCLEAR ANTIBODIES DIRECT Negative (Negative)
== END ==
PROVIDERS: Family Provider Nurse Practitioner Family; PCP Nurse Practitioner Family; Visit Provider Urology
DX: N12 Tubulo-interstitial nephritis, not specified as acute or chronic (principal); L65.9 Nonscarring hair loss, unspecified; L82.1 Other seborrheic keratosis; L81.4 Other melanin hyperpigmentation; D18.01 Hemangioma of skin and subcutaneous tissue; D22.5 Melanocytic nevi of trunk; Z71.89 Other specified counseling; L57.8 Other skin changes due to chronic exposure to nonionizing radiation; L81.8 Other specified disorders of pigmentation; D48.5 Neoplasm of uncertain behavior of skin; D22.62 Melanocytic nevi of left upper limb, including shoulder
CPT/HCPCS: 36415; 76770; 80053; 82728; 84443; 85025; 86038

== ENCOUNTER 2017-12-14 12:02 | Outpatient (RCR) | payer OTHER, SELFPAY | END 2018-01-07 23:59 | LOC: DC 12:02 | PROVIDERS: Family Provider Nurse Practitioner Family; PCP Nurse Practitioner Family; Visit Provider Nurse Practitioner Family | DX: E11.69 Type 2 diabetes mellitus with other specified complication (principal); D50.9 Iron deficiency anemia, unspecified; N39.0 Urinary tract infection, site not specified; Z71.3 Dietary counseling and surveillance ==

== ENCOUNTER 2018-01-11 08:50 | Outpatient (RCR) | payer OTHER, SELFPAY | END 2018-02-07 23:59 | LOC: DC 08:50 | PROVIDERS: Family Provider Nurse Practitioner Family; PCP Nurse Practitioner Family; Visit Provider Nurse Practitioner Family | DX: E11.69 Type 2 diabetes mellitus with other specified complication (principal); D50.9 Iron deficiency anemia, unspecified; N39.0 Urinary tract infection, site not specified; Z71.3 Dietary counseling and surveillance ==

== ENCOUNTER → 2018-05-16 14:47 | Outpatient (CLI) | payer OTHER, SELFPAY ==
[2018-05-16 13:19] VITALS: BMI 32.8
[2018-05-16 15:27] LABS: Hemoglobin A1c 6.7 % (4.2-6.3)
[2018-05-16 15:34] LABS: ALB/GLOB Ratio 1.2 RATIO (0.9-2.4); AST(SGOT) 12 U/L (15-37); Alanine Aminotransfer ALT/SGPT 22 U/L (13-56); Albumin, Serum 4.2 g/dL (3.2-5.0); Alkaline Phosphatase 120 U/L (45-117); Anion Gap 10 (5-15); BUN 9 mg/dL (7-18); BUN/Creat Ratio 14.7 RATIO (10-20); Calcium,Total 9.3 mg/dL (8.5-10.1); Chloride 104 mmol/L (98-107); Creatinine, Serum 0.61 mg/dL (0.55-1.02); EST Glomerular Filtration Rate 109 mL/min (>60); Est Glom Filt Rate - Afr Amer 132 mL/min (>60); Globulin 3.5 g/dL (2.2-4.2); Glucose 104 mg/dL (74-106); Potassium 3.7 mmol/L (3.5-5.1); Protein, Total 7.7 g/dL (6.4-8.2); Sodium Level 140 mmol/L (136-145)
== END ==
PROVIDERS: Family Provider Nurse Practitioner Family; PCP Nurse Practitioner Family; Referring Provider Nurse Practitioner; Visit Provider Nurse Practitioner
DX: E11.9 Type 2 diabetes mellitus without complications (principal)
CPT/HCPCS: 36415; 80053; 83036

== ENCOUNTER 2018-07-14 18:57 | Emergency (ER) | payer OTHER, SELFPAY ==
[2018-05-16 13:19] VITALS: BMI 32.8
[2018-07-14 18:58] VITALS: BP 152/78; PULSE 105; RESP 18; TEMP 36.5; O2SAT 98; BMI 30.1
[2018-07-14 19:16] VITALS: BP 137/80; PULSE 102; RESP 18; O2SAT 98
[2018-07-14 19:44] LABS: Bacteria 0 SEEN /hpf (None Seen); Mucous, Urine 0 SEEN /hpf (<or=2+); Squamous Epithelial Cells - UA 0 SEEN /hpf (5-10); White Blood Cells 0 SEEN /hpf (0-5)
[2018-07-14 20:09] LABS: Absolute Lymphocyte Count 4.05 X10^3/ul (0.83-4.51); Absolute Neutrophil Count 6.4 X10^3/uL (2.0-7.7); Basophil# 0.04 X10^3/uL; Basophil% 0.3 % (0-1); Eosinophil# 0.18 X10^3/uL; Eosinophils% 1.6 % (0-5); Hematocrit 43.4 % (37-47); Hemoglobin 14.5 g/dl (12.0-15.0); Lymphocyte # 4.05 X10^3/ul (4.0); Lymphocyte % 35.3 % (19-41); Mean Corp Hgb Conc 33.4 g/gl (32-36); Mean Corpuscular Hgb 29.5 pg (27.0-32.0); Mean Corpuscular Volume 88.4 fL (81-99); Mean Platelet Vol. 9.4 fl (6.2-12.0); Monocyte# 0.77 X10^3/uL; Monocyte% 6.7 % (0-10); Neutrophil # 6.41 X10^3/uL (2.7-7.7); Neutrophil % 55.8 % (47-70); POSITIVE COUNT NO; POSITIVE DIFFERENTIAL NO; POSITIVE MORPHOLOGY NO; Platelet Count 332 K/mm3 (150-450); RBC Distribution Width CV 13.2 % (11.6-14.6); RBC Distribution Width SD 42.1 fl (35.1-43.9); Red Blood Count 4.91 M/mm3 (4.2-5.4); White Blood Count 11.5 K/mm3 (4.4-11.0)
[2018-07-14 20:18] LABS: Color, Urine Straw (Yellow); Glucose, Dipstick Normal (Normal); Ketone-Dipstick Negative (Negative); Leukocyte Esterase-Dipstick Negative /ul (Negative); Nitrite-Dipstick Negative (Negative); Occult Blood-Urine Negative /ul (Negative); Protein-Dipstick Negative (Negative); Specific Gravity, Urine 1.005 (1.002-1.030); Urine Bilirubin Dipstick Negative (Negative); Urine Clarity Clear (Clear); Urine Urobilinogen Normal (Normal)
[2018-07-14 20:19] VITALS: BP 122/71; PULSE 83; RESP 18; O2SAT 98
[2018-07-14 20:24] LABS: Anion Gap 6 (5-15); BUN 10 mg/dL (7-18); Calcium,Total 9.3 mg/dL (8.5-10.1); Chloride 103 mmol/L (98-107); Creatinine, Serum 0.71 mg/dL (0.55-1.02); EST Glomerular Filtration Rate 92 mL/min (>60); Est Glom Filt Rate - Afr Amer 111 mL/min (>60); Estimated Creatinine Clearance 77.54 ml/min; Glucose 141 mg/dL (74-106); Potassium 3.6 mmol/L (3.5-5.1); Sodium Level 139 mmol/L (136-145); Thyroid Stim Hormone (TSH) 1.55 uIU/mL (0.358-3.74)
[2018-07-14 20:29] LABS: Red Blood Cells-Urine 0-5 SEEN /hpf (0-5)
--- NOTE | 2018-07-14 21:27 | ED.DCSUM_ITS ---
- ER Visit Summary Date of Service: 07/14/18 Chief Complaint: Low iron History of Present Illness: The patient is a 53 F who is concerned for low iron. She says she feels tired. Nothing seems to bring the symptoms on or make them worse. She had similar symptoms in the past with iron deficiency anemia and required 2 iron infusions in March 2018. Patient denies associated symptoms like fever, chest pain, shortness of breath, GI symptoms, symptoms, bleeding. Denies focal weakness or numbness. Denies any speech changes or facial droop. Physical Examination: Afebrile and hemodynamically normal except for heart rate of 105. Patient appears nontoxic and in no acute distress. Cranial nerves grossly intact. Normal strength and sensation. Alert and oriented. Normal neurologic exam grossly. Heart regular rate and rhythm. Lungs clear. Abdomen soft Test Results: CBC, BMP, TSH, and urinalysis unremarkable. Emergency Department Course and Treatment: Patient presents with generalized fatigue. She had similar symptoms with iron deficiency anemia in the past. Her hemoglobin today is unremarkable. I will refer her for outpatient follow-up. I considered other causes of her symptoms. Nothing to suggest cardiac or respiratory etiology. No signs of infection. No signs of endocrine or metabolic disorders. I believe the patient is appropriate for outpatient follow-up. Should rest and stay hydrated. Monitor for new or worsening symptoms. Return for any problems, otherwise follow-up with primary care. Treatment Plan: As above Disposition: Discharge Impression: 1. Generalized fatigue This note was generated with [employer] dictation software. It may contain incorrect words, spelling, and punctuation that were not noted in review of the chart prior to signing ED Disposition - Plan for ED Patient: Referrals: Cristy Simpson NP-C [Primary Care Provider] -
--- NOTE | 2018-07-14 21:27 | ED.DEP ---
ED Disposition - Plan for ED Patient: Instructions: ED Weakness [facility] Referrals: Cristy Simpson, WEATHERIZATION TECHNICIAN-C [Primary Care Provider] -
--- NOTE | 2018-07-14 21:28 | DCINST.ED_ITS ---
ED Disposition - Plan for ED Patient: Instructions: ED Weakness [facility] Referrals: Cristy Simpson, COURT REPORTER-C [Primary Care Provider] -
[2018-07-14 21:34] VITALS: BP 112/68; PULSE 76; RESP 16; O2SAT 97
== END 2018-07-14 21:40 | disposition home or self-care (01) ==
PROVIDERS: Emergency Provider Emergency Medicine; Family Provider Nurse Practitioner Family; PCP Nurse Practitioner Family
DX: R53.83 Other fatigue (principal); E11.9 Type 2 diabetes mellitus without complications; D64.9 Anemia, unspecified; Z79.899 Other long term (current) drug therapy; Z79.84 Long term (current) use of oral hypoglycemic drugs
CPT/HCPCS: 80048; 81001; 84443; 85025; 99283; A4216

== ENCOUNTER → 2023-11-28 | Outpatient (CLI) | payer BC, SELFPAY ==
[2023-11-28 15:51] LABS: Hematocrit 41.3 % (37-47); Hemoglobin 13.3 g/dL (12.0-15.0); Mean Corp Hgb Conc 32.2 g/dL (32-36); Mean Corpuscular Hgb 28.2 pg (27.0-32.0); Mean Corpuscular Volume 87.7 fL (81-99); Mean Platelet Vol. 9.5 fl (6.2-12.0); Platelet Count 304 K/mm3 (150-450); RBC Distribution Width CV 12.5 % (11.6-14.6); RBC Distribution Width SD 39.8 fl (35.1-43.9); Red Blood Count 4.71 M/mm3 (4.2-5.4); White Blood Count 9.3 K/mm3 (4.4-11.0)
[2023-11-28 15:55] LABS: Hemoglobin A1c 7.4 % (3.8-5.6)
[2023-11-28 15:57] LABS: Microalbumin,Random Urine < 5.0 mg/L (NO RANGE EST.)
[2023-11-28 16:04] LABS: ALB/GLOB Ratio 1.1 RATIO (0.9-2.4); AST(SGOT) 15 U/L (15-37); Alanine Aminotransfer ALT/SGPT 23 U/L (13-56); Albumin, Serum 3.6 g/dL (3.2-5.0); Alkaline Phosphatase 128 U/L (45-117); Anion Gap 8 (5-15); BUN 9 mg/dL (7-18); BUN/Creat Ratio 13.6 RATIO (10-20); Calcium,Total 9.5 mg/dL (8.5-10.1); Chloride 104 mmol/L (98-107); Cholesterol 201 mg/dL (200); Creatinine, Serum 0.66 mg/dL (0.55-1.02); EST Glomerular Filtration Rate 98 mL/min (>60); Est Glom Filt Rate - Afr Amer 119 mL/min (>60); Globulin 3.4 g/dL (2.2-4.2); Glucose 113 mg/dL (74-106); High Density Lipoprotein 64 mg/dL; Potassium 3.9 mmol/L (3.5-5.1); Sodium Level 140 mmol/L (136-145); Triglycerides 119 mg/dL; Very Low Density Lipoprotein 24 mg/dL (5-40)
== END | disposition home or self-care (01) ==
PROVIDERS: PCP Nurse Practitioner Family; Referring Provider Nurse Practitioner Family; Visit Provider Nurse Practitioner Family
DX: E11.69 Type 2 diabetes mellitus with other specified complication (principal); E66.9 Obesity, unspecified; D50.9 Iron deficiency anemia, unspecified; Z79.84 Long term (current) use of oral hypoglycemic drugs; Z79.85 Long-term (current) use of injectable non-insulin antidiabetic drugs
CPT/HCPCS: 36415; 80053; 80061; 82043; 83036; 85027

== ENCOUNTER → 2024-10-07 | Outpatient (CLI) | payer BC, SELFPAY ==
[2024-10-07 12:00] LABS: Hemoglobin A1c 8.4 % (<=5.6)
== END | disposition home or self-care (01) ==
LOC: MTLAB 09:21
PROVIDERS: PCP Nurse Practitioner Family; Referring Provider Nurse Practitioner Family; Visit Provider Nurse Practitioner Family
DX: E11.69 Type 2 diabetes mellitus with other specified complication (principal); E66.9 Obesity, unspecified
CPT/HCPCS: 36415; 83036